=== PATIENT | female | born 1960 | race Caucasian/White ===

== ENCOUNTER 2022-11-21 05:53 | Day surgery (SDC) | payer BC ==
[2022-11-19 11:20] LABS: BASOPHILS # (AUTO) 0.07 K/uL (0.00-0.20); BASOPHILS % (AUTO) 1.4 % (0.0-5.0); EOSINOPHILS # (AUTO) 0.39 K/uL (0.00-0.70); IMMATURE GRANULOCYTE ABSOLUTE 0.02 K/uL (0-1); LYMPHOCYTES # (AUTO) 1.4 K/uL (1.0-4.8); LYMPHOCYTES % (AUTO) 28.2 % (21.0-51.0); MEAN CORPUSCULAR HEMOGLOBIN 27.9 pg (27.0-33.0); MEAN CORPUSCULAR HGB CONC 32.6 g/dL (32.0-36.0); MEAN CORPUSCULAR VOLUME 85.6 fL (79-99); MONOCYTES # (AUTO) 0.4 K/uL (0.1-1.0); MONOCYTES % (AUTO) 9.1 % (3.0-13.0); NEUTROPHILS # (AUTO) 2.6 K/uL (1.8-7.7); NEUTROPHILS % (AUTO) 52.9 % (40.0-77.0); PLATELET COUNT (AUTO) 235 K/uL (130-400); RED BLOOD CELL COUNT(AUTO) 4.44 MIL/uL (4.00-5.50); RED CELL DISTRIBUTION WIDTH 14.2 % (11.0-15.5); WHITE BLOOD COUNT (AUTO) 4.9 K/uL (4.8-10.8)
[2022-11-19 11:30] VITALS: BP 130/56; PULSE 65; RESP 18
[2022-11-19 11:30] LABS: CREATININE 0.8 mg/dL (0.5-1.5); POTASSIUM 4.5 mmol/L (3.5-5.1)
[2022-11-19 11:53] LABS: INR 0.93 (0.85-1.15); PROTHROMBIN TIME 10.4 SEC (9.6-11.6)
[2022-11-19 11:55] LABS: PARTIAL THROMBOPLASTIN TIME 30.1 SEC (26.3-35.5)
[~2022-11-21] VITALS: Ht 157.5 cm; Wt 66.1 kg
[2022-11-21] VITALS (8 sets, daily range): BP systolic 96–131; BP diastolic 48–68; PULSE 64–85; RESP 15–17
[~2022-11-21 05:53] MED LIST: BUPR-49 PO; EXEM25TA PO; LEVO75CA5 PO; LIFI1DRO OU; VERA120T92 PO
[2022-11-21] MEDS ORDERED: HEPARIN 10,000 UNIT/10ML (1,000 UNIT/ML) VIAL ONE (10:15)
[2022-11-21] MEDS ORDERED: LIDOCAINE HCL 1% MDV 50ML VIAL ONE (10:15)
[2022-11-21] MEDS ORDERED: MEPERIDINE-PF 25 MG/ML SYG ONE ×2 (10:36→11:52)
[2022-11-21] MEDS ORDERED: MIDAZOLAM HCL 1 MG/ML 2ML VIAL ONE (10:36)
[2022-11-21] MEDS ORDERED: ISOPROTERENOL HCL 0.2 MG/ML AMP/VIAL/BAG ONE (11:49)
[2022-11-21] MEDS ORDERED: ADENOSINE 90MG VIAL IV ONE (11:49)
[2022-11-21] MEDS ORDERED: ACETAMINOPHEN WITH CODEINE 1 TAB TAB PO PRN (13:30)
== END 2022-11-21 16:00 | disposition home or self-care (01) ==
LOC: DAH 05:53
PROVIDERS: ATTEND Internal Medicine Cardiovascular Disease
DX: I47.1 Supraventricular tachycardia (principal); E03.9 Hypothyroidism, unspecified; Z79.01 Long term (current) use of anticoagulants; Z79.899 Other long term (current) drug therapy; Z79.890 Hormone replacement therapy; Z98.890 Other specified postprocedural states; Z90.89 Acquired absence of other organs; Z98.84 Bariatric surgery status; Z90.13 Acquired absence of bilateral breasts and nipples
CPT/HCPCS: 80048; 85025; 85610; 85730; 36415; 93005; 93620; 93623; 93613; 93621; C1894 ×5; C1732; C1730 ×3; A4649 ×2; J3490 ×2; J2250; J2175; J1644 ×2; J0153; A4215; A4335; A4222; A4221; A4663; A4216; A4606; A4223 ×3; A4554; 99156; 99157

== ENCOUNTER → 2024-02-17 | Outpatient (CLI) | payer OTHER ==
[~2024-02-17] MED LIST changes: +IOHEXOL 350 MG/ML 100ML INFUS..BTL IV ONE; -VERA120T92 PO
--- NOTE | 2024-02-17 14:28 | HMCIMG ---
CT CARDIAC ANGIO W/CONT. CCTA HISTORY: Chest pain COMPARISON: None TECHNIQUE: Multiple sequential axial images of the chest were obtained along with the CT angiogram of the chest study. Patient was given 100 cc of Omnipaque through intravenous route. FINDINGS: There is no evidence of pulmonary nodule or parenchymal disease. No pleural effusion or pericardial effusion is seen. There is no evidence of pneumothorax. There are normal size mediastinal and hilar lymph nodes. The heart is not enlarged. Degenerative changes of the thoracolumbar spine are present. IMPRESSION: 1. No evidence of pulmonary nodule or effusion is seen. Please see CT angiogram report of coronary arteries.
== END | disposition home or self-care (01) ==
LOC: RAH 11:46
PROVIDERS: ATTEND Internal Medicine Cardiovascular Disease
DX: R07.9 Chest pain, unspecified (principal); M47.815 Spondylosis without myelopathy or radiculopathy, thoracolumbar region
CPT/HCPCS: 75574; Q9967